=== PATIENT | male | born 1955 | race Caucasian/White ===

== ENCOUNTER 2016-11-23 07:56 | Emergency (ER) | payer BC ==
[2016-11-23] MEDS ORDERED: Ketorolac INJ* 30 MG/ML 1 ML VIAL IV ONE (08:21)
[2016-11-23 09:00] LABS: Hematocrit 42 % (42-52); Hemoglobin 14.3 g/dl (14.0-18.0); Mean Corpuscular HGB Conc 34 g/dl (31-36); Mean Corpuscular Hemoglobin 32 pg (27-31); Mean Corpuscular Volume 93 fL (80-94); Mean Platelet Volume 8 um3 (7.4-10.4); Red Blood Count 4.52 10^6/ul (4.0-5.4); Red Cell Distribution Width 13 % (10.5-15); White Blood Count 8.2 10^3/ul (3.5-10.8)
--- NOTE | 2016-11-23 09:18 | RAD ---
HISTORY: Left knee pain COMPARISONS: None VIEWS: 4, Frontal, lateral, axial, and oblique views of the left knee FINDINGS: BONE DENSITY: Normal. BONES: There is no displaced fracture. JOINTS: There is mild tricompartmental osteoarthritis. ALIGNMENT: There is no dislocation. SOFT TISSUES: Unremarkable. OTHER FINDINGS: None. IMPRESSION: OSTEOARTHRITIS. NO ACUTE OSSEOUS INJURY. IF SYMPTOMS PERSIST, RECOMMEND REPEAT IMAGING.
[2016-11-23 09:21] LABS: Albumin 4.4 g/dL (3.2-5.2); BUN/Creatinine Ratio 15.8 (8-20); C Reactive Protein 3.12 mg/L (< 5.00); Calcium 9.3 mg/dL (8.6-10.3); EGFR Non-African American 80.9 (>60); Globulin 3.3 g/dL (2-4); Total Bilirubin 0.7 mg/dL (0.2-1.0); Total Protein 7.7 g/dL (6.4-8.9)
--- NOTE | 2016-11-23 10:03 | ED ---
Jose Martin Angela, scribed for Oziel Waller MD on 11/23/16 at 0823 . Lower Extremity - HPI Summary HPI Summary: This pt is a 60 y/[facility] knee pain upon waking up in the middle of the night last night. Pt denies any trauma to his left knee or any recent falls. He currently rates his pain 1 out of 10 in severity while at rest, but reports his pain is aggravated when he ambulates. 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 Pt denies PMHx of gout. - History of Current Complaint Chief Complaint: EDExtremityLower Stated Complaint: LT KNEE PAIN Time Seen by Provider: 11/23/16 08:15 Hx Obtained From: Patient Onset of Pain: Hours Onset/Duration: Hours Pain Intensity: 2 Pain Scale Used: 0-10 Numeric Timing: Lasting Hours Location: Is Discrete @ - left knee Associated Signs And Symptoms: Positive: Knee Pain. Negative: Swelling, Redness , Weakness, Abdominal Pain Aggravating Factor(s): Ambulation, Movement Alleviating Factor(s): Rest - Allergies/Home Medications Allergies/Adverse Reactions: Allergies Allergy/AdvReac Type Severity Reaction Status Date / Time No Known Allergies Allergy Verified 11/23/16 08:15 PMH/Surg Hx/FS Hx/Imm Hx Endocrine/Hematology History: Reports: Hx Thyroid Disease - Hypothyroidism Cardiovascular History: Reports: Hx Deep Vein Thrombosis Respiratory History: Reports: Hx Pulmonary Embolism Musculoskeletal History: Denies: Hx Gout Infectious Disease History: No Infectious Disease History: Denies: Traveled Outside the [place] in Last 30 Days - Family History Known Family History: Positive: Other - Father: prostate CA - Social History Alcohol Use: Occasionally Hx Substance Use: No Substance Use Type: Reports: None Hx Tobacco Use: No Smoking Status (MU): Never Smoked Tobacco Review of Systems Negative: Fever, Chills Eyes: Negative ENT: Negative Negative: Palpitations, Chest Pain Negative: Shortness Of Breath Gastrointestinal: Negative Genitourinary: Negative Positive: Other - left knee pain Skin: Negative Negative: Headache, Weakness, Paresthesia, Numbness Psychological: Normal All Other Systems Reviewed And Are Negative: Yes Physical Exam - Summary Physical Exam Summary: VITAL SIGNS: Reviewed. GENERAL: Patient is a well-developed and nourished male who is lying comfortable in the stretcher. Patient is not in any acute respiratory distress. HEAD AND FACE: No signs of trauma. No ecchymosis, hematomas or skull depressions. No sinus tenderness. EYES: PERRLA, EOMI x 2, No injected conjunctiva, no nystagmus. EARS: Hearing grossly intact. Ear canals and tympanic membranes are within normal limits. MOUTH: Oropharynx within normal limits. NECK: Supple, trachea is midline, no adenopathy, no JVD, no carotid bruit, no c- spine tenderness, neck with full ROM. CHEST: Symmetric, no tenderness at palpation LUNGS: Clear to auscultation bilaterally. No wheezing or crackles. CVS: Regular rate and rhythm, S1 and S2 present, no murmurs or gallops appreciated. ABDOMEN: Soft, non-tender. No signs of distention. No rebound no guarding, and no masses palpated. Bowel sounds are normal. EXTREMITIES: FROM in all major joints, no edema, no cyanosis or clubbing. Left knee with decreased ROM secondary to pain. There is no deformity, no swelling and no erythema. Most of the tenderness is along the lateral aspect of the left knee and the patella. Drawer test is negative. NEURO: Alert and oriented x 3. No acute neurological deficits. Speech is normal and follows commands. SKIN: Dry and warm. Triage Information Reviewed: Yes Vital Signs On Initial Exam: Initial Vitals Temp Pulse Resp BP Pulse Ox 97.5 F 76 20 123/75 99 11/23/16 07:58 11/23/16 07:58 11/23/16 07:58 11/23/16 07:58 11/23/16 07:58 Vital Signs Reviewed: Yes Diagnostics - Vital Signs Vital Signs Temp Pulse Resp BP Pulse Ox 11/23/16 07:58 97.5 F 76 20 123/75 99 - Laboratory Lab Results: Lab Results 11/23/16 11/23/16 11/23/16 Range/Units 08:44 08:44 08:44 WBC 8.2 (3.5-10.8) 10^3/ul RBC 4.52 (4.0-5.4) 10^6/ul Hgb 14.3 (14.0-18.0) g/dl Hct 42 (42-52) % MCV 93 (80-94) fL MCH 32 H (27-31) pg MCHC 34 (31-36) g/dl RDW 13 (10.5-15) % Plt Count 256 (150-450) 10^3/ul MPV 8 (7.4-10.4) um3 Neut % (Auto) 74.4 (38-83) % Lymph % (Auto) 16.2 L (25-47) % [place] % (Auto) 7.4 (1-9) % Eos % (Auto) 1.6 (0-6) % Baso % (Auto) 0.4 (0-2) % Absolute Neuts (auto) 6.1 (1.5-7.7) 10^3/ul Absolute Lymphs (auto) 1.3 (1.0-4.8) 10^3/ul Absolute Monos (auto) 0.6 (0-0.8) 10^3/ul Absolute Eos (auto) 0.1 (0-0.6) 10^3/ul Absolute Basos (auto) 0 (0-0.2) 10^3/ul Absolute Nucleated RBC 0.01 10^3/ul Nucleated RBC % 0.1 ESR Pending INR (Anticoag Therapy) 1.52 H (0.89-1.11) Sodium 135 (133-145) mmol/L Potassium 4.0 (3.5-5.0) mmol/L Chloride 103 (101-111) mmol/L Carbon Dioxide 27 (22-32) mmol/L Anion Gap 5 (2-11) mmol/L BUN 15 (6-24) mg/dL Creatinine 0.95 (0.67-1.17) mg/dL Est GFR ( Amer) 104.0 (>60) Est GFR (Non-Af Amer) 80.9 (>60) BUN/Creatinine Ratio 15.8 (8-20) Glucose 109 H (70-100) mg/dL Uric Acid 6.0 (4.4-7.6) mg/dL Calcium 9.3 (8.6-10.3) mg/dL Total Bilirubin 0.70 (0.2-1.0) mg/dL AST 22 (13-39) U/L ALT 20 (7-52) U/L Alkaline Phosphatase 57 (34-104) U/L C-Reactive Protein 3.12 (< 5.00) mg/L Total Protein 7.7 (6.4-8.9) g/dL Albumin 4.4 (3.2-5.2) g/dL Globulin 3.3 (2-4) g/dL Albumin/Globulin Ratio 1.3 (1-3) Result Diagrams: 11/23/16 08:44 11/23/16 08:44 Lab Statement: Any lab studies that have been ordered have been reviewed, and results considered in the medical decision making process. - Radiology Left Knee XR Xray Interpretation: No Acute Changes - IMPRESSION: Osteoarthritis. No acute osseous injury. If symptoms persist, recommend repeat imaging. ED physician has reviewed this radiology report and agrees. Radiology Interpretation Completed By: Radiologist Lower Extremity Course/Dx - Course Assessment/Plan: In the ED course an IV access was obtained. Patient was placed in a electrician supervisor airplane. Patient was started with IV fluids. He was given Toradol for the pain. Patient has no hx of trauma, or heavy lifting. Patient woke with pain at the middle of the night. P/E reveals no swelling, erythema normal temperature but pain along the lateral aspect of the knee. Labs within normal limits except for INR 1.52. Subtherapeutic INR. Knee x-ray: osteoarthritis. No acute osseous injury. Since patient has no WBCs and knee has no increased temperature or erythema I have low suspicion for Infection. Pain is reproducible at palpation. After medications pain improved. He will be discharged home with pain medications and f/u of his orthopedic doctor. I discussed all the findings and test results with the patient. Patient was instructed to return to the emergency room immediately if any of the symptoms return or worsens. Plan of care was discussed with the patient and understands and agrees. All questions were answered at patient satisfaction. There were no further complaints or concerns. - Diagnoses Differential Diagnosis/HQI/PQRI: Positive: Arthritis, Bursitis, Cellulitis, Contusion, Dislocation, Fracture (Closed), Gout, Infection, Osteomyelitis, Sprain, Strain Provider Diagnoses: Knee pain, acute, Osteoarthritis Discharge - Discharge Plan Condition: Stable Disposition: HOME Patient Education Materials: Knee Pain (ED) Referrals: Navi Verde MD [Primary Care Provider] - Additional Instructions: Please follow up with your primary care provider. The documentation as recorded by the Jose baptiste Angela accurately reflects the service I personally performed and the decisions made by me, Oziel Waller MD.
[2016-11-23 10:12] LABS: Erythrocyte Sed Rate 20 mm/Hr (0-20)
[2016-11-23 10:13] VITALS: BP 129/77
== END 2016-11-23 10:13 | disposition home or self-care (01) ==
LOC: ED 07:56
DX: M25.562 Pain in left knee (principal); M17.12 Unilateral primary osteoarthritis, left knee
CPT/HCPCS: 36415; 80053; 84550; 85025; 85610; 85652; 86140; 96374; 99282; J1885

== ENCOUNTER 2019-04-07 11:02 | Emergency (ER) | payer BC ==
[2019-04-07 11:27] VITALS: BP 128/84
--- NOTE | 2019-04-07 11:57 | UC ---
Ear Complaint HPI - HPI Summary HPI Summary: 63 y/o male presents to the urgent care c/o started yesterday right ear ringing and pain w/ decrease hearing. States pain is mild 2/10, only trigger when he pulls his ear. He feels a lot of pressure. He has had Hx of recurrent ear infections. Pt denies fever, dizziness, SOB, SANTIAGO, chest pain,abdominal pain, N/V/ D or rash - History of Current Complaint Chief Complaint: UCEar Stated Complaint: EAR PROBLEM Time Seen by Provider: 04/07/19 11:35 Hx Obtained From: Patient Onset/Duration: Gradual Onset, Lasting Days - 1 day, Worse Since - today w/ RT ear pressure Severity Initially: Mild Severity Currently: Mild Pain Intensity: 2 Pain Scale Used: 0-10 Numeric Aggravating Factors: Other - touch ear Alleviating Factors: Nothing Associated Signs/Symptoms: Negative: Discharge, Trauma to Ear - Allergies/Home Medications Allergies/Adverse Reactions: Allergies Allergy/AdvReac Type Severity Reaction Status Date / Time No Known Allergies Allergy Verified 04/07/19 11:27 PMH/Surg Hx/FS Hx/Imm Hx Previously Healthy: Yes - P Endocrine History: Hypothyroidism Cardiovascular History: Deep Vein Thrombosis - Surgical History Surgical History: None - Family History Known Family History: Positive: Cardiac Disease, Other - Father: prostate CA - Social History Occupation: Employed Full-time Lives: With Family Alcohol Use: Occasionally Substance Use Type: None Smoking Status (MU): Never Smoked Tobacco Review of Systems All Other Systems Reviewed And Are Negative: Yes Constitutional: Positive: Negative Skin: Positive: Negative Eyes: Positive: Negative ENT: Positive: Ear Ache - Rt ear pain, pressure and decrease hearing Respiratory: Positive: Negative Cardiovascular: Positive: Negative Gastrointestinal: Positive: Negative Genitourinary: Positive: Negative Motor: Positive: Negative Neurovascular: Positive: Negative Musculoskeletal: Positive: Negative Neurological: Positive: Negative Psychological: Positive: Negative Is Patient Immunocompromised?: No Physical Exam - Summary Physical Exam Summary: Vital signs: reviewed General: well developed, well nourished male sitting in the examining table w/o any apparent distress Skin: Eek, warm and dry, no evidence of atopic dermatitis, psoriasis, seborrhea. HEENT: -Head: atraumatic, non tender; no scalp dermatitis. -Eyes: sclera and conjunctiva clear, PERRLA, EOMI -Ears: no pre- or postauricular lymphadenopathy or erythema; RT external ear canal impacted w/ cerumen unable to visualize TM. pinna tenderness on palpation , LF external ear canal clear and LF TM WNL. Good light reflex. No fluid level, vesicles, or bullae. No perforation. -Nose/Face: erythematous and edematous nasal mucosa with clear rhinorrhea, no frontal or maxillary sinus tender to palpation. -Mouth/Throat: Mucous membrane moist, posterior pharynx clear, no erythema or exudates. Neck: supple, FROM, nontender, no lymphadenopathy, no meningismus. Chest: Clear to auscultation, normal breath sounds Abd: soft, Bowel sounds active, Nontender. Back: no spinal or CVAT Neuro: A&O x4, GCS 15, no focal neuro deficits, normal behavior for age. Triage Information Reviewed: Yes Vital Signs: Initial Vital Signs Temp 98.2 F 04/07/19 11:24 Pulse 68 04/07/19 11:24 Resp 18 04/07/19 11:24 BP 128/84 04/07/19 11:24 Pulse Ox 97 04/07/19 11:24 Ear Complaint Course/Dx - Course Course Of Treatment: 63 y/o male presents to the urgent care c/o started yesterday right ear ringing and pain w/ decrease hearing. States pain is mild 2/10, only trigger when he pulls his ear. He feels a lot of pressure. He has had Hx of recurrent ear infections. Pt denies fever, dizziness, SOB, SANTIAGO, chest pain,abdominal pain, N/V/ D or rash. Hx obtained. Pt w/ RT external ear canal impacted w/ cerumen and RT anterior cervical and preauricular lymphadenopathy on examination. Rt ear irrigation ordered. Irrigation performed by Nurse. Pt tolerated well procedure w /o any adverse effect. RT external canal w/ erythema and yellowish purulent discharge, RT TM injected w/ erythema, no light reflex, no perforation. Pt will be Tx for Otitis externa and Media. Pt Rx Amoxicillin PO and Cortisporin otic drops. Pt advised if not improvement of symptoms in 2-3 days to f/u w/ his PCP or ENT Dr Delvalle for further evaluation and treatment specially if he continues w/ tinnitus. D/C instructions explained. Pt understood and agreed w/ plan of care. - Differential Dx/Diagnosis Differential Diagnosis/HQI/PQRI: Bronchitis, Cerumen Impaction, Otitis Externa, Otitis Media, Perforated TM Provider Diagnosis: Right ear impacted cerumen, Right otitis media, Right otitis externa Discharge ED - Sign-Out/Discharge Documenting (check all that apply): Patient Departure - D/C home All imaging exams completed and their final reports reviewed: No Studies - Discharge Plan Condition: Stable Disposition: HOME Prescriptions: Amoxicillin PO (*) [Amoxicillin 875 MG (*)] 875 mg PO BID #14 tab Neomyc/Polym/HC 1% OTIC SUSP* [Cortisporin Otic Susp 1%*] 4 drop RIGHT EAR TID # 1 btl Patient Education Materials: Ear Infection (ED) Referrals: Navi Verde MD [Primary Care Provider] - 1 Week Miles Delvalle MD [Medical Doctor] - 1 Week Additional Instructions: 1- Please take the full course of the antibiotic to avoid resistance.Take yogurts w/ probiotics or Culturelle to protect your GI system 2-Please apply Cortisporin otic antibiotic on your Rt ear as directed. 3-If symptoms do not improve or worsen please f/u with your PCP or ENT DR Delvalle for further management on the ringing of the ears and evaluation and treatment. - Billing Disposition and Condition Condition: STABLE Disposition: Home
== END 2019-04-07 13:26 | disposition home or self-care (01) ==
LOC: UCEAST 11:02
DX: H61.21 Impacted cerumen, right ear (principal); H66.91 Otitis media, unspecified, right ear; H60.91 Unspecified otitis externa, right ear; R59.0 Localized enlarged lymph nodes; E03.9 Hypothyroidism, unspecified; Z79.01 Long term (current) use of anticoagulants; Z79.899 Other long term (current) drug therapy
CPT/HCPCS: 99203; G0463